=== PATIENT | male | born 2000 | race Hispanic/Latino ===

== ENCOUNTER 2024-11-27 23:37 | Emergency (ER) | payer BC, SELFPAY ==
[2024-11-28 00:11] LABS: Glucose, Urine (Dipstick) Normal (Negative); Leukocyte Negative (Negative); Protein, Urine (Dipstick) Negative (Neg-Trace); Specific Gravity, Urine 1.020 (1.005-1.030)
[2024-11-28 00:22] LABS: Bacteria/HPF Rare-Few HPF (None Seen); CAUTI Indications for Culture Pelvic or flank pain; RBC/HPF 0-3 HPF (0-3); WBC/HPF 0-3 HPF (0-3)
[2024-11-28 00:23] LABS: Urine Culture Reflex No No
[2024-11-28] MEDS ORDERED: Ondansetron PF 4 MG/2 ML Vial ONE (00:28)
[2024-11-28 00:30] LABS: #Basophils 0.04 10x3/uL (0.0-0.2); #Eosinophils 0.33 10x3/uL (0.0-0.5); #Monocytes 1.28 10x3/uL (0.0-1.1); #Neutrophils 9.00 10x3/uL (1.5-8.4); %Basophils 0.3 % (0.0-2.0); %Eosinophils 2.3 % (0.0-6.0); %Lymphocytes 24.4 % (18.0-47.0); %Monocytes 9.0 % (0.0-10.0); %Neutrophils 63.6 % (40.0-75.0); Hematocrit 43.2 % (38.8-50.0); Hemoglobin 15.2 g/dL (13.5-17.5); Mean Corpuscular Hemoglobin 29.7 pg (27.0-33.0); Mean Corpuscular Volume 84.5 fL (81.2-95.1); Platelet Count 346 10x3/uL (150-450); Red Blood Cell (RBC) Count 5.11 10x6/uL (4.32-5.72); White Blood Cell (WBC) Count 14.17 10x3/uL (3.5-10.5)
[2024-11-28 00:49] LABS: INR-International Normal Ratio 1.0; PTT 28.0 sec (22.0-33.0); Prothrombin Time 11.1 sec (9.5-12.1)
[2024-11-28 00:53] LABS: ALT (SGPT) 23 U/L (Less than 45); AST (SGOT) 32 U/L (11-34); Albumin 4.6 g/dL (3.1-4.5); Alkaline Phosphatase 73 U/L (40-110); Anion Gap 13 mmol/L (10-20); BUN (Urea Nitrogen) 17 mg/dL (8.9-20.6); Bilirubin, Total 0.5 mg/dL (0.3-1.2); Calc. Creatinine Clearance 0 mL/min (70-130); Calcium 9.5 mg/dL (7.8-10.44); Carbon Dioxide 23 mmol/L (22-29); Chloride 107 mmol/L (98-107); Globulin 3.0 g/dL (2.4-3.5); Glucose 102 mg/dL (70-105); Lipase 11 U/L (8-78); Potassium 3.5 mmol/L (3.5-5.1); Sodium 139 mmol/L (136-145)
[2024-11-28] MEDS ORDERED: Ketorolac Tromethamine 30 MG (1 mL) VIAL ONE (03:26)
== END 2024-11-28 03:35 | disposition home or self-care (01) ==
LOC: CSHERS 23:37
DX: S40.211A Abrasion of right shoulder, initial encounter (principal); M25.512 Pain in left shoulder; F10.129 Alcohol abuse with intoxication, unspecified; Y90.2 Blood alcohol level of 40-59 mg/100 ml; V18.3XXA Person boarding or alighting a pedal cycle injured in noncollision transport accident, initial encounter
CPT/HCPCS: 36415; 71045; 72170; 80053; 80307; 81001; 83690; 85025; 85610; 85730; 86850; 86900; 86901; 93005; 94760; J1885